=== PATIENT | male | born 1935 | race Caucasian/White ===

== ENCOUNTER → 2016-03-02 | Day surgery (SDC) | payer OTHER ==
[2016-03-01 08:34] VITALS: BMI 25.0
[~2016-03-02] VITALS: Ht 162.6 cm; Wt 68.2 kg
[~2016-03-02] MED LIST: ACET-1327 PO; ALBUAER2 INH; ATROPINE SULFATE 0.1 MG/ML 5ML SYR IV PRN; EpHEDrine SULFATE 50MG/5ML SYR ONE; EpHEDrine SULFATE INJ 50 MG/ML AMP IV PRN; ISOS30TA3 PO; LIDOCAINE HCL 2% 2 ML VIAL (20MG/ML) ONE; MULT-513 PO; NTRGSL/4 UT; OMEP40CA PO; ONDANSETRON INJ 2 MG/ML 2 ML VIAL IV PRN; PROPOFOL IV EMULSION 10 MG/ML 20 ML VIAL IV ONE; TPRSR50 PO
[2016-03-02 09:59] VITALS: Ht 162.6 cm; Wt 68.2 kg
--- NOTE | 2016-03-02 10:23 | Endo History and Physical ---
History & Physical Date of Service: Mar 02, 2016. Chief Complaint: BARRETTS ESOPHAGUS Referring Physician: YESSICA KAPOOR History of Present Illness Patient with a history of cirrhosis / Barretts esophagus for surveillance upper endoscopy today. No difficulty with swallowing. Past Medical History Cancer, Hypertension, Liver Disease Past Surgical History Hx Cardiac Surgery: Yes (HEART CATH X2, NO STENT (ANGIOPLASTY INSTEAD)) Hx Internal Defibrillator: No Hx Pacemaker: No Hx Abdominal Surgery: No Hx of Implantable Prosthesis: No Hx Post-Op Nausea and Vomiting: No Hx Cancer Surgery: No Hx Thoracic Surgery: No Hx Orthopedic: No Hx Urinary Tract Surgery: No Family History None Social History Smoking Status: Former Smoker Hx Substance Use: No Hx Alcohol Use: No Allergies Coded Allergies: No Known Allergies (Verified , 03/02/16) Current Medications Reported Home Medications Medications Dose Route/Sig Max Daily Dose Days Date Category Nitrostat (Nitroglycerin) 0.4 Mg Tab 0.4 Mg UT PRN PRN 03/01/16 Reported Prilosec (Omeprazole) 40 Mg Capcr 40 Mg PO QAM 03/01/16 Reported Imdur Ext Rel (Isosorbide Mononitrate) 30 Mg Ertab 30 Mg PO QAM 03/01/16 Reported Metoprolol Succinate ER (Metoprolol Succinate) 50 Mg Tabcr 1 Tab PO QAM 03/01/16 Reported Acetaminophen ER (Acetaminophen) 650 Mg Tab 1 Tab PO Q8 PRN 10/22/15 Reported Mvi With Minerals (Multivitamins/Minerals) Tab 1 Tab PO QAM 04/13/14 Reported Vital Signs Weight (Kilograms): 68.18 Height (Feet): 5 Height (Inches): 4 Date Time Temp Pulse Resp B/P Pulse Ox O2 Delivery O2 Flow Rate FiO2 03/02/16 10:07 36.6 62 18 150/76 95 Room Air Physical Exam General Appearance: no apparent distress Respiratory/Chest: Auscultation: breath sounds normal Cardiovascular: Heart Auscultation: RRR Abdomen: Inspection & Palpation: soft Assessment and Plan EGD for evaluation of Barretts esophagus / portal hypertension. Risks discussed to include bleeding, infection, perforation, pain, and aspiration.
--- NOTE | 2016-03-02 11:09 | Discharge Instructions ---
Endoscopy Patient Instructions Date / Procedure(s) Performed Mar 02, 2016. EGD Allergy Information Coded Allergies: No Known Allergies (Verified , 03/02/16) Discharge Date / Findings Mar 02, 2016. 2 cm segment of Barretts Esophagus No esophageal varices today Medication Instructions Reported Home Medications Medications Dose Route/Sig Max Daily Dose Days Date Category Nitrostat (Nitroglycerin) 0.4 Mg Tab 0.4 Mg UT PRN PRN 03/01/16 Reported Prilosec (Omeprazole) 40 Mg Capcr 40 Mg PO QAM 03/01/16 Reported Imdur Ext Rel (Isosorbide Mononitrate) 30 Mg Ertab 30 Mg PO QAM 03/01/16 Reported Metoprolol Succinate ER (Metoprolol Succinate) 50 Mg Tabcr 1 Tab PO QAM 03/01/16 Reported Acetaminophen ER (Acetaminophen) 650 Mg Tab 1 Tab PO Q8 PRN 10/22/15 Reported Mvi With Minerals (Multivitamins/Minerals) Tab 1 Tab PO QAM 04/13/14 Reported Provider Instructions Activity Restrictions - No exercising or heavy lifting for 24 hours. - Do not drink alcohol the day of the procedure. - Do not drive a car or operate machinery until the day after the procedure. - Do not make any important decisions or sign important papers in 24 hours after the procedure. Following Day: - Return to full activity which may include returning to work/school. Diet Start your diet with liquids and light foods (jello, soup, juice, toast). Then eat your usual diet if not nauseated. Treatment For Common After Affects For mild abdominal pain, bloating, or excessive gas: - Rest - Eat lightly - Lie on right side Follow-Up Information Repeat upper endoscopy in 1.5 years to screen for esophageal varices Await pathology results Anesthesia Information What You Should Know You have had a procedure that required some medicine to reduce anxiety and discomfort. This treatment is called moderate sedation. After receiving the treatment, you may be sleepy, but you will be able to breathe on your own. The effects of the treatment may last for several hours. Follow these instructions along with Activity/Diet recommendations noted above: * Do NOT do anything where dizziness or clumsiness would be dangerous. * Rest quietly at home today, then you can be up and about tomorrow. * Have a responsible person stay with you the rest of today. * You may have had an I.V. today. If so, you may take the dressing off later today. Recommendations Call your doctor if: * Trouble breathing * Continuous vomiting for more than 24 hours * Temperature above 101 degrees * Severe abdominal pain or bloating * Pain not relieved by pain medicine ordered * There is increased drainage or redness from any incision * A large amount of rectal bleeding greater than 2-3 tablespoons. (If you had a polyp/s removed or have hemorrhoids, a small amount of blood - from the rectum is to be expected.) * You have any unanswered questions or concerns. IN THE EVENT OF A SERIOUS EMERGENCY, GO TO THE NEAREST EMERGENCY ROOM Your discharge instructions were prepared by provider Glen Ahn. Patient Instructions Signature Page Arnold Ocasio Patient (or Guardian) Signature/Date: I have read and understand the instructions given to me by my caregivers. Caregiver/RN/Doctor Signature/Date: The above-named patient and/or guardian has received patient instructions on this date. + Original Patient Signature Page (only) stays with chart. Please make copy for patient.
--- NOTE | 2016-03-02 11:13 | GI REPORT ---
Procedure Date: 03/02/2016 10:22 AM Procedure: Upper GI endoscopy Indications: Follow-up of Bailey's esophagus, Portal hypertension with suspected esophageal varices Medicines: Monitored Anesthesia Care Complications: No immediate complications. Estimated blood loss: Minimal. Estimated Blood Loss: Estimated blood loss was minimal. Procedure: Pre-Anesthesia Assessment: - Prior to the procedure, a History and Physical was performed, and patient medications, allergies and sensitivities were reviewed. The patient's tolerance of previous anesthesia was reviewed. - The risks and benefits of the procedure and the sedation options and risks were discussed with the patient. All questions were answered and informed consent was obtained. - Patient identification and proposed procedure were verified prior to the procedure by the physician, the nurse and the shredding machine operator. The procedure was verified in the procedure room. - Pre-procedure physical examination revealed no contraindications to sedation. - ASA Grade Assessment: IV - A patient with severe systemic disease that is a constant threat to life. - After reviewing the risks and benefits, the patient was deemed in satisfactory condition to undergo the procedure. - The anesthesia plan was to use monitored anesthesia care (MAC). - Immediately prior to administration of medications, the patient was re-assessed for adequacy to receive sedatives. - The heart rate, respiratory rate, oxygen saturations, blood pressure, adequacy of pulmonary ventilation, and response to care were monitored throughout the procedure. - The physical status of the patient was re-assessed after the procedure. After obtaining informed consent, the endoscope was passed under direct vision. Throughout the procedure, the patient's blood pressure, pulse, and oxygen saturations were monitored continuously. The scope was introduced through the mouth, and advanced to the second part of duodenum. The upper GI endoscopy was accomplished without difficulty. The patient tolerated the procedure well. Findings: There is no endoscopic evidence of varices in the entire esophagus. The esophagus and gastroesophageal junction were examined with white light. 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 These changes involved the mucosa at the upper extent of the gastric folds (38 cm from the incisors) extending to the Z-line (36 cm from the incisors). Circumferential salmon-colored mucosa was present from 36 to 38 cm. The maximum longitudinal extent of these esophageal mucosal changes was 2 cm in length. Mucosa was biopsied with a cold forceps for histology. One specimen bottle was sent to pathology. Estimated blood loss was minimal. The entire examined stomach was normal. The examined duodenum was normal. 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 Biopsied. - Normal stomach. - Normal examined duodenum. Recommendation: - Discharge patient to home (ambulatory). - Advance diet as tolerated today. - Await pathology results. - Repeat the upper endoscopy in 1.5 years for screening purposes. - Return to GI office as previously scheduled. Glen Ahn D.O. Glen Ahn, 03/02/2016 11:11:46 AM This report has been signed electronically. Note Initiated On: 03/02/2016 10:22 AM
--- NOTE | 2016-03-02 11:23 | Anesthesiology Progress Note ---
Anesthesia Post Op Note Date & Time Mar 02, 2016 at 11:22 Vital Signs Pain Intensity: 0 Vital Signs Past 12 Hours Date Time Temp Pulse Resp B/P Pulse Ox O2 Delivery O2 Flow Rate FiO2 03/02/16 11:17 55 20 121/61 97 Room Air 03/02/16 11:02 70 20 100/66 97 Mask 3 03/02/16 10:07 36.6 62 18 150/76 95 Room Air Notes Mental Status: alert / awake / arousable, participated in evaluation Pt Amnestic to Procedure: Yes Nausea / Vomiting: adequately controlled Pain: adequately controlled Airway Patency, RR, SpO2: stable & adequate BP & HR: stable & adequate Hydration State: stable & adequate Anesthetic Complications: no major complications apparent
[2016-03-02 11:32] VITALS: BP 113/64; PULSE 67; O2SAT 96
== END | disposition home or self-care (01) ==
LOC: C.GI 09:47
PROVIDERS: ATTEND Internal Medicine Gastroenterology
DX: K20.9 Esophagitis, unspecified (principal); K76.6 Portal hypertension; Z87.891 Personal history of nicotine dependence

== ENCOUNTER → 2016-04-21 | Outpatient (CLI) | payer OTHER ==
[~2016-04-21] MED LIST changes: -ALBUAER2 INH; -ATROPINE SULFATE 0.1 MG/ML 5ML SYR IV PRN; -EpHEDrine SULFATE 50MG/5ML SYR ONE; -EpHEDrine SULFATE INJ 50 MG/ML AMP IV PRN; -LIDOCAINE HCL 2% 2 ML VIAL (20MG/ML) ONE; -ONDANSETRON INJ 2 MG/ML 2 ML VIAL IV PRN; -PROPOFOL IV EMULSION 10 MG/ML 20 ML VIAL IV ONE
[2016-04-21 17:49] LABS: HEMATOCRIT 38.8 % (42-52); MEAN CELL VOLUME 89.2 fL (80-100); MEAN CORPUSCULAR HEMOGLOBIN 30.6 pg (25-34); MEAN CORPUSCULAR HGB CONC 34.3 g/dl (32-36); RED BLOOD COUNT 4.35 M/uL (4.7-6.1); WHITE BLOOD COUNT 2.39 K/uL (4.8-10.8)
[2016-04-21 19:01] LABS: MEAN PLATELET VOLUME 10.5 fL (7.4-10.4); PLATELET COUNT 79 K/uL (130-400)
[2016-04-21 19:03] LABS: BASO % 0.4 %; BASO ABS # 0.01 K/uL (0-0.2); COMPLETE YES; EOS % 4.2 %; LYMPH % 31.4 %; LYMPH ABS # 0.75 K/uL (1.2-3.4); MONO % 5.9 %; NEUT % 58.1 %; PLT ESTIMATE DECREASED
== END | disposition home or self-care (01) ==
LOC: C.LABPVFM 11:26
PROVIDERS: ATTEND Family Medicine
DX: D61.818 Other pancytopenia (principal)

== ENCOUNTER → 2016-05-26 | Outpatient (CLI) | payer OTHER ==
[~2016-05-26] MED LIST changes: -ACET-1327 PO; +ACET650T9 PO
[2016-05-26 17:22] LABS: BASO % 0.1 %; BASO ABS # 0.01 K/uL (0-0.2); COMPLETE YES; EOS % 0.5 %; HEMATOCRIT 47.4 % (42-52); IG% 0.3 %; LYMPH % 5.2 %; LYMPH ABS # 0.38 K/uL (1.2-3.4); MEAN CELL VOLUME 93.3 fL (80-100); MEAN CORPUSCULAR HEMOGLOBIN 31.9 pg (25-34); MEAN CORPUSCULAR HGB CONC 34.2 g/dl (32-36); MEAN PLATELET VOLUME 10.2 fL (7.4-10.4); NEUT % 85.9 %; PLATELET COUNT 115 K/uL (130-400); RED BLOOD COUNT 5.08 M/uL (4.7-6.1); WHITE BLOOD COUNT 7.34 K/uL (4.8-10.8)
[2016-05-26 19:56] LABS: ALT/SGPT 50 U/L (12-78); AST/SGOT 69 U/L (15-37); BLOOD UREA NITROGEN 25 mg/dl (7-18); BUN/CREATININE RATIO 22.4 (10-20); CALCIUM 8.7 mg/dl (8.5-10.1); CARBON DIOXIDE 25 mmol/L (21-32); CHLORIDE 105 mmol/L (98-107); GLUCOSE 96 mg/dl (70-99); IMMUNOGLOBULN A 99.1 mg/dL (70-400); POTASSIUM 3.4 mmol/L (3.5-5.1); SODIUM 140 mmol/L (136-145)
[2016-05-26 20:32] LABS: ALKALINE PHOSPHATASE 74 U/L (45-117); FERRITIN 158.3 ng/ml (8.0-388.0); TOTAL IRON BINDING CAPACITY 393 mcg/dl (250-450)
[2016-05-28 16:03] LABS: ALBUMIN 4.2 G/DL (3.8-4.8); FREE KAPPA 342.7 MG/L (3.3-19.4); FREE KAPPA/LAMBDA RATIO 19.25 (0.26-1.65); FREE LAMBDA 17.8 MG/L (5.7-26.3); MONOCLONAL PROTEIN BAND 1 0.6 G/DL (NOT DETECTED); TOTAL PROTEIN 7.3 G/DL (6.2-8.3)
== END | disposition home or self-care (01) ==
LOC: C.LABPVFM 13:32
PROVIDERS: ATTEND Nurse Practitioner Family
DX: D50.0 Iron deficiency anemia secondary to blood loss (chronic) (principal)